=== PATIENT | female | born 1945 | race Caucasian/White ===

== ENCOUNTER 2021-01-04 14:52 | Inpatient (IN) | payer OTHER ==
[2021-01-04 15:12] VITALS: BMI 23.5
[2021-01-04] MEDS ORDERED: METOCLOPRAMIDE HCL INJECTION 10 MG/2 ML VIAL IVPUSH ONE (16:02)
[2021-01-04] MEDS ORDERED: SODIUM CHLORIDE 0.9% 500 ML INFUS.BAG IV ONE (16:02)
[2021-01-04] MEDS ORDERED: ACETAMINOPHEN 1000 MG/100 ML VIAL (NON FORMULARY) IVPB ONE (16:02)
[2021-01-04] MEDS ORDERED: METOCLOPRAMIDE HCL INJECTION 10 MG/2 ML VIAL ONE (16:29)
[2021-01-04] MEDS ORDERED: ACETAMINOPHEN INJECTION 100 ML IVPB ONE (16:31)
[2021-01-04 16:54] LABS: BASO % 0.3 % (0-2.0); EOS % 0.8 % (0-4.5); HEMATOCRIT 38.4 % (32.4-45.2); HEMOGLOBIN 13.3 GM/dL (10.7-15.3); LYMPH % 17.2 % (8-40); MCH 30.7 pg (25.7-33.7); MCHC 34.6 g/dl (32.0-36.0); MEAN CELL VOLUME 88.8 fl (80-96); MEAN PLT VOLUME 7.6 fl (7.5-11.1); MONO % 6.6 % (3.8-10.2); NEUT % 75.1 % (42.8-82.8); PLATELET COUNT 297 10^3/uL (134-434); RBC 4.33 M/mm3 (3.60-5.2); RDW 13.2 % (11.6-15.6); WHITE BLOOD COUNT 7.7 K/mm3 (4.0-10.0)
[2021-01-04 17:01] LABS: INR 0.99 (0.83-1.09); PROTHROMBIN TIME (PATIENT) 12.2 SEC (9.7-13.0)
[2021-01-04 17:04] LABS: ACTIVATED PTT 25.5 SECONDS (25.2-36.5)
[2021-01-04 17:12] LABS: CHLORIDE 92 mmol/L (98-107); SODIUM 125 mmol/L (136-145)
[2021-01-04 17:14] LABS: ANION GAP 9 MMOL/L (8-16); BLOOD UREA NITROGEN 14.7 mg/dL (7-18); CALCIUM 8.6 mg/dL (8.5-10.1); CO2 24 mmol/L (21-32); GLUCOSE,RANDOM 89 mg/dL (74-106); MAGNESIUM 1.9 mg/dL (1.8-2.4)
[2021-01-04 17:15] LABS: ALBUMIN 4.2 g/dl (3.4-5.0)
[2021-01-04 17:17] LABS: CREATININE 0.7 mg/dL (0.55-1.3); SGOT/AST 22 U/L (15-37); SGPT/ALT 24 U/L (13-61)
[2021-01-04 17:19] LABS: BILIRUBIN,TOTAL 0.7 mg/dL (0.2-1); TOT PROT 7.6 g/dl (6.4-8.2)
[2021-01-04 17:20] LABS: ALK PHOS 70 U/L (45-117)
[2021-01-04 17:53] LABS: ERYTHROCYTE SEDIMENTATION RATE 7 mm/hr (0-30)
[2021-01-04 19:40] LABS: CHLORIDE 94 mmol/L (98-107); SODIUM 128 mmol/L (136-145)
[2021-01-04 19:44] LABS: ANION GAP 9 MMOL/L (8-16); BLOOD UREA NITROGEN 12.1 mg/dL (7-18); CO2 25 mmol/L (21-32); GLUCOSE,RANDOM 96 mg/dL (74-106)
[2021-01-04 19:47] LABS: CREATININE 0.8 mg/dL (0.55-1.3)
[2021-01-04 20:41] LABS: CHOLESTEROL 210 mg/dL (50-200); TRIGLYCERIDES 58 mg/dL (0-150)
[2021-01-04 20:43] LABS: LDL CHOLESTEROL (ONLY SJRH) 103 mg/dL (5-100)
[2021-01-04 20:44] LABS: HDL CHOLESTEROL 93 mg/dL (40-60)
[2021-01-04] MEDS ORDERED: ASPIRIN COATED 81 MG TABLET.EC PO ONE (21:00)
[2021-01-04] MEDS ORDERED: SODIUM CHLORIDE 500 ML IV SCH (21:45)
[2021-01-04] MEDS ORDERED: ATORVASTATIN CA 40 MG TABLET (FP) PO SCH (22:00)
[2021-01-04] MEDS: RANOLAZINE E.R. 500 MG TABLET (FP) PO SCH (22:14)
[2021-01-05 00:38] LABS: EPI CELLS 3 /uL (0-25.1); HYALINE CASTS 0 /uL (0-3.1); PH,URINE 6.5 (5.0-8.0); URINE APPEARANCE CLEAR; URINE BACTERIA 46 /uL (0-1359); URINE BILIRUBIN NEGATIVE (NEGATIVE); URINE COLOR YELLOW; URINE GLUCOSE (UA) NEGATIVE (NEGATIVE); URINE KETONE NEGATIVE (NEGATIVE); URINE LEUK ESTERASE TRACE (NEGATIVE); URINE NITRITE NEGATIVE (NEGATIVE); URINE PROTEIN NEGATIVE (NEGATIVE); URINE RBC 4 /uL (0-23.9); URINE UROBILINOGEN 0.2 mg/dL (0.2-1.0); URINE WBC 12 /uL (0-25.8)
[2021-01-05 07:46] LABS: HEMATOCRIT 38.1 % (32.4-45.2); HEMOGLOBIN 13.4 GM/dL (10.7-15.3); MCH 31.4 pg (25.7-33.7); MCHC 35.1 g/dl (32.0-36.0); MEAN CELL VOLUME 89.4 fl (80-96); MEAN PLT VOLUME 7.4 fl (7.5-11.1); PLATELET COUNT 304 10^3/uL (134-434); RBC 4.26 M/mm3 (3.60-5.2); RDW 12.7 % (11.6-15.6); WHITE BLOOD COUNT 5.2 K/mm3 (4.0-10.0)
[2021-01-05 08:09] LABS: CALCIUM 8.6 mg/dL (8.5-10.1)
[2021-01-05 08:10] LABS: ALBUMIN 3.7 g/dl (3.4-5.0); BLOOD UREA NITROGEN 9.3 mg/dL (7-18)
[2021-01-05 08:11] LABS: MAGNESIUM 2.1 mg/dL (1.8-2.4)
[2021-01-05 08:13] LABS: CREATININE 0.7 mg/dL (0.55-1.3); PHOSPHOROUS 3.3 mg/dL (2.5-4.9)
[2021-01-05 08:14] LABS: BILIRUBIN,TOTAL 0.7 mg/dL (0.2-1)
[2021-01-05 08:15] LABS: TOT PROT 6.7 g/dl (6.4-8.2)
[2021-01-05] MEDS ORDERED: ENOXAPARIN NA (PORCINE) 40 MG/0.4 ML DISP.SYRIN SQ SCH (10:00)
[2021-01-05] MEDS: RANOLAZINE E.R. 500 MG TABLET (FP) PO SCH (11:13)
[2021-01-05] MEDS ORDERED: SODIUM CHLORIDE 0.45% 1,000 ML IV SCH (13:45)
[2021-01-05 14:37] VITALS: BP 115/50; PULSE 62; TEMP 98.3
[2021-01-05 16:12] LABS: BLOOD UREA NITROGEN 10.8 mg/dL (7-18); CALCIUM 8.4 mg/dL (8.5-10.1)
[2021-01-05 16:16] LABS: CREATININE 0.7 mg/dL (0.55-1.3)
== END 2021-01-05 19:20 | disposition home or self-care (01) | DRG 641 ==
LOC: JER 14:52 → JERBED 18:25 → J4S 21:37
PROVIDERS: ADMIT Internal Medicine; ATTEND Internal Medicine
DX: E87.1 Hypo-osmolality and hyponatremia (principal); H53.9 Unspecified visual disturbance; Z95.1 Presence of aortocoronary bypass graft; E78.00 Pure hypercholesterolemia, unspecified; I25.10 Atherosclerotic heart disease of native coronary artery without angina pectoris; E78.5 Hyperlipidemia, unspecified; R51.9 Headache, unspecified; R11.0 Nausea
CPT/HCPCS: 36415; 70450-TC; 70544-TC; 70547-TC; 71045-TC-FY; 80048; 80053; 80061; 81003; 82550; 83036; 83721; 83735; 84100; 84443; 84484; 85025; 85027; 85610; 85651; 85730; 86140; 93005; 93010; 93880-TC; 99285-25; C9803; J0131; U0003; U0005

== ENCOUNTER 2021-10-17 08:44 | Emergency (ER) | payer OTHER ==
[2021-10-17 08:56] VITALS: BP 160/75; PULSE 73; TEMP 98; BMI 23.5
== END 2021-10-17 11:40 | disposition home or self-care (01) ==
LOC: JER 08:44
DX: S09.90XA Unspecified injury of head, initial encounter (principal); W10.9XXA Fall (on) (from) unspecified stairs and steps, initial encounter
CPT/HCPCS: 70450-TC; 99284-25